=== PATIENT | male | born 1950 | race Caucasian/White ===

== ENCOUNTER 2017-12-19 09:50 | Outpatient (CLI) | payer MEDICARE, BC ==
--- NOTE | 2017-12-19 12:29 | Pre-Procedure Note/Attestation ---
Pre-Procedure Note/Attestation Complete Prior to Procedure Planned Procedure: left Procedure Narrative: US guided needle biopsy Indications for Procedure Pre-Operative Diagnosis: Left neck mass Attestation I attest that I discussed the nature of the procedure; its benefits; risks and complications; and alternatives (and the risks and benefits of such alternatives ), prior to the procedure, with the patient (or the patient's legal investment representative). I attest that I re-evaluated the patient just prior to the surgery and that there has been no change in the patient's H&P, except as documented below: Jose Turk M.D. Dec 19, 2017 12:29
--- NOTE | 2017-12-19 12:38 | Diagnostic Imaging Report ---
Indication: Left neck mass. Technique: Ultrasound-guided core needle biopsy. Comparison: None Findings: Preliminary scanning was performed of the region of interest of the left neck demonstrating a 2.1 x 1.7 cm mass/enlarged lymph node in the submandibular region. This corresponds with the area of palpable concern. No significant vascularity was noted within this lesion upon interrogation with color Doppler. The area was prepped and draped in the usual sterile fashion including the use of sterile ultrasound probe cover and sterile ultrasound gel. Preprocedure timeout was performed. An appropriate access site was chosen and local anesthetic 1% lidocaine. A small hematoma is made. Under real-time ultrasound guidance 18-gauge biopsy needle was advanced into the periphery of the mass and total of 3 core biopsy specimens were obtained and placed in formalin and RPMI submitted for pathology. Hemostasis was easily achieved with manual compression after needle removal. Postbiopsy scanning was performed, demonstrating no significant hematoma. A dressing was applied. Patient tolerated the procedure well and left the department stable condition. IMPRESSION: Technically successful guided core needle biopsy of left neck mass as detailed above.
== END 2017-12-19 11:50 | disposition home or self-care (01) ==
LOC: ULS 09:50
DX: R59.0 Localized enlarged lymph nodes (principal); R22.1 Localized swelling, mass and lump, neck
CPT/HCPCS: 76942